=== PATIENT | female | born 1995 | race Caucasian/White ===

== ENCOUNTER 2017-06-02 03:07 | Emergency (ER) | payer BC, OTHER ==
[~2017-06-02] VITALS: Ht 154.9 cm; Wt 60.0 kg
[~2017-06-02 03:07] MED LIST: VAGINAL CREAM
[2017-06-02 03:14] VITALS: BP 110/63; PULSE 63; RESP 20; TEMP 97.5; O2SAT 98
[2017-06-02] MEDS ORDERED: METR250 PO (03:22)
[2017-06-02] MEDS ORDERED: DICY10 PO (03:22)
[2017-06-02 03:47] VITALS: RESP 22; O2SAT 99
--- NOTE | 2017-06-02 03:53 | PD ---
HPI Chief Complaint: Cardiac Complaint Time Seen by Provider: 03:38 Travel History International Travel<30 days: No Contact w/Intl Traveler<30days: No Traveled to known affect area: No History of Present Illness HPI 22-year-old female complains of chest pain and shortness of breath. Patient states the symptoms started tonight. Patient states that she had 4 drinks tonight. Patient states that she may have exposed to some allergen in the drink.. Patient denies any illicit drug use. Patient is unable to tell me the quality of the quantity of the chest pain. Patient unable to tell me whether the chest pain is with any radiation. Patient denies any injury. Patient denies any headache. Patient denies any coughing congestion fever chills. Patient denies abdominal pain. 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 : 2 Para: 1 Miscarriage: 1 Past Surgical History Surgical History: No Previous Surgery Appendectomy: No Cholecystectomy: No Social History Alcohol Use: Yes (OCCASIONAL) Tobacco Use: Yes (OCCASIONAL) Substance Use: Yes (STATES SMOKES MJ ON AVERAGE OF ONCE A MONTH) Allergies-Medications (Allergen,Severity, Reaction): Coded Allergies: grape (Verified Allergy, Severe, Hives, 06/02/17) penicillin G (Unverified Allergy, Mild, 12/09/16) amoxicillin (Unverified Allergy, Unknown, 12/09/16) Reported Meds & Prescriptions Reported Meds & Active Scripts Active Reported Flagyl (Metronidazole) 250 Mg Tab 250 Mg PO BID Bentyl (Dicyclomine HCl) 10 Mg Cap 10 Mg PO TID PRN Review of Systems General / Constitutional: No: Fever Eyes: No: Visual changes HENT: No: Headaches Cardiovascular: Positive: Chest Pain or Discomfort Respiratory: No: Shortness of Breath Gastrointestinal: No: Abdominal Pain Genitourinary: No: Dysuria Musculoskeletal: No: Pain Skin: No Rash Neurologic: No: Weakness Psychiatric: No: Depression Endocrine: No: Polydipsia Hematologic/Lymphatic: No: Easy Bruising Physical Exam Narrative GENERAL: Well-nourished, well-developed patient. SKIN: Focused skin assessment warm/dry. HEAD: Normocephalic. EYES: No scleral icterus. No injection or drainage. Pupils 2 mm equal reactive. NECK: Supple, trachea midline. No JVD or lymphadenopathy. CARDIOVASCULAR: Regular rate and rhythm without murmurs, gallops, or rubs. RESPIRATORY: Breath sounds equal bilaterally. No accessory muscle use. GASTROINTESTINAL: Abdomen soft, non-tender, nondistended. MUSCULOSKELETAL: No cyanosis, or edema. BACK: Nontender without obvious deformity. No CVA tenderness. Neurologic exam: Patient is lethargic. Patient is sitting with eyes open however is not following command. Patient moves all extremities well. No obvious focal neurological deficit. Data Data Last Documented VS Vital Signs Date Time Temp Pulse Resp B/P (MAP) Pulse Ox O2 Delivery O2 Flow Rate FiO2 06/02/17 04:50 06/02/17 03:47 22 99 Room Air 06/02/17 03:14 80 06/02/17 03:14 97.5 Orders Orders Electrocardiogram (06/02/17 03:44) Complete Blood Count With Diff (06/02/17 03:44) Comprehensive Metabolic Panel (06/02/17 03:44) Thyroid Stimulating Hormone (06/02/17 03:44) Chest, Single Ap (06/02/17 03:44) Iv Access Insert/Monitor (06/02/17 03:44) Ecg Monitoring (06/02/17 03:44) Oximetry (06/02/17 03:44) Ed Urine Pregnancytest Poc (06/02/17 03:44) Drug Screen, Random Urine (06/02/17 03:44) Alcohol (Ethanol) (06/02/17 03:44) Creatine Kinase (Cpk) (06/02/17 03:44) Troponin I (06/02/17 03:44) Ed Discharge Order (06/02/17 04:50) Labs Laboratory Tests Test 06/02/17 03:57 06/02/17 04:29 White Blood Count 7.8 TH/MM3 Red Blood Count 4.29 MIL/MM3 Hemoglobin 14.0 GM/DL Hematocrit 40.4 % Mean Corpuscular Volume 94.1 FL Mean Corpuscular Hemoglobin 32.6 PG Mean Corpuscular Hemoglobin Concent 34.6 % Red Cell Distribution Width 12.4 % Platelet Count 282 TH/MM3 Mean Platelet Volume 7.5 FL Neutrophils (%) (Auto) 56.3 % Lymphocytes (%) (Auto) 36.7 % Monocytes (%) (Auto) 6.2 % Eosinophils (%) (Auto) 0.3 % Basophils (%) (Auto) 0.5 % Neutrophils # (Auto) 4.4 TH/MM3 Lymphocytes # (Auto) 2.8 TH/MM3 Monocytes # (Auto) 0.5 TH/MM3 Eosinophils # (Auto) 0.0 TH/MM3 Basophils # (Auto) 0.0 TH/MM3 CBC Comment DIFF FINAL Differential Comment Urine Opiates Screen NEG Urine Barbiturates Screen NEG Urine Amphetamines Screen NEG Urine Benzodiazepines Screen NEG Urine Cocaine Screen POS Urine Cannabinoids Screen POS MDM Medical Decision Making Medical Screen Exam Complete: Yes Emergency Medical Condition: Yes Interpretation(s) EKG shows sinus rhythm nonspecific ST-T wave changes. Last Impressions Chest X-Ray 06/02/17 0344 Signed Impressions: Service Date/Time: Friday, June 02, 2017 03:50 - CONCLUSION: No acute cardiopulmonary abnormality is identified. Jey Enriquez MD 4:49 AM. CBC within normal limit. CMP pending. Cardiac enzymes pending. Urine drug screen positive for cannabis and cocaine Differential Diagnosis Differential diagnosis including anxiety, substance abuse, musculoskeletal, angina, NH, PE, pneumothorax. Narrative Course 22-year-old female with chest pain and shortness of breath. Patient states that she probably exposed to some drugs in the drink. 4:49 AM. Patient's awake alert oriented 3. Patient wants to leave. Patient does not want to wait for results of blood tests or urine test. Diagnosis Primary Impression: Chest pain Qualified Codes: R07.9 - Chest pain, unspecified Additional Impression: Substance abuse Patient Instructions: General Instructions Additional Instructions: Patient does not want wait for the test results. Patient wants to leave. Advised patient to follow-up with local physician. Disposition: 01 DISCHARGE HOME Condition: Stable Elliot Groves MD Jun 02, 2017 03:52
--- NOTE | 2017-06-02 04:09 | RADRPT ---
EXAM DATE/TIME: 06/02/2017 03:50 [facility] COMPARISON: No previous studies available for comparison. INDICATIONS : Chest pain. MEDICAL HISTORY : None. SURGICAL HISTORY : None. ENCOUNTER: Initial ACUITY: 1 day PAIN SCORE: 6/10 LOCATION: Right chest FINDINGS: Portable AP view of the chest demonstrates a normal-sized cardiac silhouette. No effusion, consolidat ion, or pneumothorax is visualized. The bones and soft tissues demonstrate no acute abnormality. Sylvia ent is rotated and underinflated. Right nipple piercing is present. CONCLUSION: No acute cardiopulmonary abnormality is identified. Jey Enriquez MD on June 02, 2017 at 4:07 Board Certified Radiologist. This report was verified electronically.
[2017-06-02 04:14] LABS: AUTOMATED NEUTROPHIL # 4.4 TH/MM3 (1.8-7.7); BASOPHIL % 0.5 % (0.0-2.0); EOSINOPHIL % 0.3 % (0.0-4.0); HEMATOCRIT 40.4 % (35.0-46.0); LYMPH % 36.7 % (9.0-44.0); LYMPHOCYTE # 2.8 TH/MM3 (1.0-4.8); MEAN CELL VOLUME 94.1 FL (80.0-100.0); MEAN CORPUSCULAR HEMOGLOBIN 32.6 PG (27.0-34.0); MEAN CORPUSCULAR HGB CONC 34.6 % (32.0-36.0); MEAN PLATELET VOLUME 7.5 FL (7.0-11.0); MONO % 6.2 % (0.0-8.0); MONOCYTE # 0.5 TH/MM3 (0-0.9); NEUT % 56.3 % (16.0-70.0); PLATELET COUNT 282 TH/MM3 (150-450); RED BLOOD COUNT 4.29 MIL/MM3 (4.00-5.30); RED CELL DISTRIBUTION WIDTH 12.4 % (11.6-17.2); WHITE BLOOD COUNT 7.8 TH/MM3 (4.0-11.0)
[2017-06-02 05:34] LABS: ALBUMIN 3.6 GM/DL (3.4-5.0); ALKALINE PHOSPHATASE 76 U/L (45-117); ALT (GPT) 26 U/L (10-53); AST (GOT) 18 U/L (15-37); BICARBONATE 27.3 MEQ/L (21.0-32.0); BLOOD UREA NITROGEN 6 MG/DL (7-18); CALCIUM 8.4 MG/DL (8.5-10.1); CHLORIDE 113 MEQ/L (98-107); CREATININE 0.64 MG/DL (0.50-1.00); GLOMERULAR FILTRATION RATE 115 ML/MIN (>89); GLUCOSE,RANDOM 99 MG/DL (74-106); SODIUM (NA) 147 MEQ/L (136-145); TOTAL BILIRUBIN ADULT 0.1 MG/DL (0.2-1.0); TOTAL PROTEIN 6.7 GM/DL (6.4-8.2); TROPONIN I LESS THAN 0.02 NG/ML (0.02-0.05)
--- NOTE | 2017-06-02 11:01 | EKG ---
Date Performed: 06/02/2017 Time Performed: 03:12:02 PTAGE: 22 years EKG: Sinus rhythm NORMAL ECG NO PREVIOUS TRACING DOCTOR: Fernando Clement Interpretating Date/Time 06/02/2017 10:57:33
== END 2017-06-02 05:04 | disposition home or self-care (01) ==
LOC: NEPC 03:07
DX: R07.9 Chest pain, unspecified (principal); F19.10 Other psychoactive substance abuse, uncomplicated; J45.909 Unspecified asthma, uncomplicated; Z72.0 Tobacco use
CPT/HCPCS: 71045; 80053; 80307; 82550; 84443; 84484; 84703; 85025; 93005; 99285